=== PATIENT | male | born 1945 | race Caucasian/White ===

== ENCOUNTER 2016-06-02 11:38 | Emergency (ER) | payer MEDICARE, BC ==
[2016-06-02 12:06] VITALS: BP 103/53
[2016-06-02] MEDS ORDERED: HYDROcodone/ACETAMIN 5-325 MG* 1 TAB PO ONE (13:40)
[2016-06-02] MEDS ORDERED: Carisoprodol TAB* 350 MG PO ONE (13:40)
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
== END 2016-06-02 14:55 | disposition home or self-care (01) ==
LOC: ED 11:38
DX: S39.012A Strain of muscle, fascia and tendon of lower back, initial encounter (principal); X58.XXXA Exposure to other specified factors, initial encounter; Y93.9 Activity, unspecified; Y92.9 Unspecified place or not applicable; Y99.9 Unspecified external cause status
CPT/HCPCS: 99281; A9270-GY

== ENCOUNTER 2016-09-23 02:19 | Emergency (ER) | payer MEDICARE, BC ==
[2016-09-23] MEDS ORDERED: Diazepam TAB(*) 5 MG PO ONE (03:34)
[2016-09-23] MEDS ORDERED: Ketorolac INJ* 60 MG/2 ML VIAL IM ONE (03:34)
[2016-09-23 04:02] VITALS: BP 100/63
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
== END 2016-09-23 04:01 | disposition home or self-care (01) ==
LOC: ED 02:19
DX: S13.4XXA Sprain of ligaments of cervical spine, initial encounter (principal); X50.3XXA Overexertion from repetitive movements, initial encounter; Y93.H2 Activity, gardening and landscaping; Y92.9 Unspecified place or not applicable; Z88.5 Allergy status to narcotic agent
CPT/HCPCS: 96372; 99282; A9270-GY; J1885

== ENCOUNTER 2017-10-14 01:11 | Observation (INO) | payer MEDICARE, BC ==
[2017-10-14] MEDS ORDERED: NS 0.9% 1000 ML* 1,000 ML IV ONE (01:35)
[2017-10-14] MEDS ORDERED: Metoprolol Tartrate IV* 1 MG/ML 5 ML VIAL IV ONE ×3 (01:36→02:24)
[2017-10-14 01:56] LABS: ABS Basophils 0.1 10^3/ul (0-0.2); ABS Eosinophils 0.1 10^3/ul (0-0.6); ABS Lymphocytes 2.8 10^3/ul (1.0-4.8); ABS Monocytes 0.7 10^3/ul (0-0.8); ABS Neutrophils 3.9 10^3/ul (1.5-7.7); ABS Nucleated RBC 0 10^3/ul; Eosinophil % 1.7 % (0-6); Hematocrit 42 % (42-52); Hemoglobin 14.2 g/dl (14.0-18.0); Lymphocyte % 36.7 % (25-47); Mean Corpuscular HGB Conc 34 g/dl (31-36); Mean Corpuscular Hemoglobin 32 pg (27-31); Mean Corpuscular Volume 94 fL (80-94); Mean Platelet Volume 8.7 um3 (7.4-10.4); Nucleated Red Blood Cells % 0; Platelet Count 202 10^3/ul (150-450); Red Cell Distribution Width 14 % (10.5-15); White Blood Count 7.5 10^3/ul (3.5-10.8)
[2017-10-14 02:02] LABS: INR 0.96 (0.77-1.02)
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
[2017-10-14] MEDS ORDERED: Magnesium Sulfate 2 GM IV* 2 GM/50 ML BAG IVPB ONE (02:55)
[2017-10-14] MEDS ORDERED: Digoxin IV* 0.5 MG/2 ML AMP (0.25 MG/ML) IV SLOW PU ONE (03:08)
[2017-10-14] MEDS ORDERED: Ondansetron 40 MG VIAL* 2 MG/ML 20 ML VIAL IV PRN (03:10)
[2017-10-14] MEDS ORDERED: Al Hydrox/Mg Hydrox/Simet LIQ* 30 ML UDC PO PRN (03:10)
[2017-10-14] MEDS ORDERED: Cetirizine* 10 MG TAB PO PRN (03:14)
[2017-10-14] MEDS ORDERED: Metoprolol Tartrate IV* 1 MG/ML 5 ML VIAL IV PRN (03:15)
[2017-10-14] MEDS: NS 0.9% 1000 ML* 1,000 ML IV SCH ×2 (04:19→13:19)
--- NOTE | 2017-10-14 05:20 | HP ---
CC: Mini Price MD * HISTORY AND PHYSICAL: DATE OF ADMISSION: 10/14/17 TIME OF EVALUATION: 0300. PRIMARY CARE PHYSICIAN: Mini Price MD CHIEF COMPLAINT: Chest tightness and fatigue. HISTORY OF PRESENT ILLNESS: This is a 72-year-old male with a past medical history of coronary artery disease, status post stenting; AFib, on anticoagulation, status post ablation, who presents to the emergency room with having fatigue and chest tightness over the past few days. He denies there being chest pain; however, he was concerned about the fatigue and the chest tightness and they are planning on flying out to go to the [facility] early this morning, that he figured he should to go to the emergency room for further evaluation. He states he did have some associated shortness of breath and felt clammy. No nausea. He did have diarrhea few days that has since resolved. No fevers, no chills, no cold symptoms. No abdominal pain. No urinary symptoms. No leg swelling. No recent changes in his medications. He has had a slight weight gain about 5 pounds. He has increase in his exertional activity working around the house, doing yard work and composting. He has also increased his caffeine intake. No evidence of snoring at night. In the emergency room, the patient had labs and imaging. He was noted to be in rapid atrial fibrillation. He was given metoprolol 10 mg total, a liter of fluid, and referred to the hospitalist service for further evaluation. Otherwise, review of systems is negative. PAST MEDICAL HISTORY: 1. History of coronary artery disease, status post 3 stents, STEMI in February 2017, that showed in-stent restenosis of the LAD. 2. Atrial fibrillation, history of ablation, 2013. He is followed by Dr. Abarca. 3. Hypertension. 4. Hyperlipidemia. 5. Systolic heart failure with ejection fraction of 30% to 35%. 6. Seasonal allergies. MEDICATIONS: 1. Eliquis 5 mg p.o. b.i.d. 2. Valsartan 20 mg p.o. daily. 3. Lipitor 80 mg p.o. daily. 4. Nitroglycerin 0.4 mg sublingual q.5 minutes. 5. Metoprolol succinate 25 mg p.o. at bedtime. 6. Loratadine 10 mg daily as needed. 7. Brilinta 90 mg p.o. b.i.d. 8. Viagra 100 mg p.o. once as needed. ALLERGIES: TYLENOL, OXYCODONE, develops a rash. FAMILY HISTORY: His brother had an [place] in his 50s. He in his 70s. His paternal grandfather in his 50s from an [place]. SOCIAL HISTORY: The patient lives at home with his , Kimberly, who is his healthcare proxy. He is a nonsmoker. Rare alcohol use. He has Ph.D. Code status is full code. REVIEW OF SYSTEMS: A 14-point review of systems as mentioned in the HPI, otherwise negative. PHYSICAL EXAMINATION GENERAL: In no acute distress, resting comfortably with his at the bedside. VITAL SIGNS: T-max 98.7, pulse rate 94, respiratory rate 16, oxygen saturation 97% on room air, blood pressure 106/78. HEENT: Head: Normocephalic. Pupils are equal and reactive, anicteric. Oropharynx: Mucous membranes are moist. NECK: Supple. No lymphadenopathy. RESPIRATORY: Clear to auscultation. No wheezes, rhonchi, or rales. CARDIAC: Irregularly irregular rate and rhythm, tachycardia. Systolic murmur most prominent at the right sternal base. ABDOMEN: Soft, nontender, nondistended. EXTREMITIES: No clubbing, cyanosis, or edema. +2 DPs. NEUROLOGICAL: Alert and oriented x3. No gross focal neurologic deficits. DIAGNOSTIC STUDIES/LAB DATA: White count 7.5, hemoglobin 14.2, hematocrit 42, platelets 202. INR 0.96. Sodium 139, potassium 4.2, chloride 109, bicarb 24, BUN 16, creatinine 0.72, glucose 100, magnesium 1.7. Troponin 0.02. BNP is 405. TSH is 5.23. Radiographic data: EKG: Atrial fibrillation with a rate of 131. Chest x-ray: Wet read unremarkable. ASSESSMENT AND PLAN: This is a 72-year-old male with a past medical history of atrial fibrillation, on anticoagulation, and coronary artery disease, status post stenting with a ST-segment elevation myocardial infarction, presents to the emergency room with fatigue and chest tightness, found to be in rapid atrial fibrillation. Rapid atrial fibrillation. Assessment: It is unclear the etiology. He does have some chest tightness. His initial troponins were unremarkable. He does have a low magnesium. Plan: We will admit him to telemetry. We will give him a dose of digoxin now and magnesium now. We will place him on some gentle IV fluids. We will keep him n.p.o. and have Cardiology seen him in the morning for possible cardioversion and further evaluation. We will continue to trend his troponin, check a lipid panel. We will continue his Eliquis. Will continue IV Lopressor, hold PO metoprolol We will continue his Brilinta. He does not want to take an aspirin as this caused epistaxis in the past. We will hold his valsartan for now while trying to get his rate under better control. FEN: As mentioned, keep the patient n.p.o. IV fluids placed. DVT prophylaxis: The patient scores moderate risk. He is on Eliquis. Code status: Full code. PATIENT TIME: Greater than 45 minutes was spent doing the history and physical , more than half the time spent in direct patient contact. [id number]/[facility] #: [id number] HAMMAD
--- NOTE | 2017-10-14 08:06 | RAD ---
HISTORY: CP, chest pain COMPARISONS: March 04, 2017 VIEWS: 1: frontal portable view of the chest at 1:56 AM FINDINGS: LINES AND TUBES: None. CARDIOMEDIASTINAL SILHOUETTE: The cardiomediastinal silhouette is normal for portable technique. PLEURA: The costophrenic angles are sharp. No pleural abnormalities are noted. LUNG PARENCHYMA: The lungs are clear. ABDOMEN: The upper abdomen is clear. There is no subphrenic gas. BONES AND SOFT TISSUES: No bone or soft tissue abnormalities are noted. IMPRESSION: NO ACTIVE CARDIOPULMONARY DISEASE.
[2017-10-14] MEDS ORDERED: Ticagrelor* 90 MG TAB PO SCH (09:00)
[2017-10-14] MEDS ORDERED: Apixaban* 5 MG TAB PO SCH (09:00)
[2017-10-14] MEDS ORDERED: Atorvastatin* 80 MG TAB PO SCH ×2 (09:00→17:00)
[2017-10-14] MEDS ORDERED: fentaNYL* 50 MCG/ML 2 ML VIAL (100 MCG VIAL) ONE (09:44)
[2017-10-14] MEDS ORDERED: Naloxone* 0.4 MG/ML 1 ML VIAL ONE (09:44)
[2017-10-14] MEDS ORDERED: Flumazenil* 0.1 MG/ML 5 ML MDV ONE (09:44)
[2017-10-14] MEDS ORDERED: Midazolam* 1 MG/ML 10 ML VIAL (10 MG) ONE (09:44)
--- NOTE | 2017-10-14 10:50 | CONS ---
CC: Dr. Price; Dr. Abarca at [facility].* CARDIOLOGY CONSULTATION: DATE OF CONSULT: 10/14/17 INDICATION FOR CONSULTATION: Atrial fibrillation. HISTORY OF PRESENT ILLNESS: The patient is a 72-year-old gentleman with a history of coronary artery disease, history of atrial fibrillation, was admitted to the hospital with atrial fibrillation. The patient last admitted to the hospital was in 03/05/17, at that time he had acute ST-segment elevation in the anterior leads. His cardiac catheterization showed focal restenosis of his LAD stent and underwent a repeat stenting of his LAD. The patient states that over the last couple of days, he has been feeling more fatigued. He felt short of breath yesterday and ultimately, started having some mild pressure in his chest. The patient came to the emergency room. On arrival to the emergency room, he was in atrial fibrillation with rapid ventricular response. The patient was given IV metoprolol and diltiazem, his heart rate came under control. He was admitted to the hospital. The patient's troponin has been negative x2. His TSH was normal. The patient does have a history of atrial fibrillation. He did undergo pulmonary vein ablation in the past, it was 3 or 4 years ago. He cannot remember the exact date and has had no episodes of atrial fibrillation since then. PAST MEDICAL HISTORY: Significant for coronary artery disease. He had a stent placed to his LAD in February of 2016, again he had restenosis in February of 2017. History of atrial fibrillation, he is status post ablation, hyperlipidemia , hypertension. OUTPATIENT MEDICATIONS: 1. Eliquis 5 mg b.i.d. 2. Valsartan 20 mg a day. 3. Lipitor 80 mg a day. 4. Metoprolol succinate 25 mg q.h.s. 5. Loratadine 10 mg a day. 6. Brilinta 90 mg b.i.d. 7. Viagra as needed. ALLERGIES: TYLENOL and OXYCODONE. FAMILY HISTORY: His father has a history of myocardial infarction in his 50s, his paternal grandfather had a myocardial infarction in his 50s. SOCIAL HISTORY: He lives with his . He is a nonsmoker, rare alcohol intake. PHYSICAL EXAMINATION: Height is 5 feet 11 inches, weight is 200 pounds. Temperature 98.7, blood pressure 106/78, respiratory rate is 16, heart rate is 92, oxygen saturation 97% on room air. Sclerae anicteric. Oropharynx is pink without erythema. Carotids are 2+ without bruits. JVD is normal. Thyroid is normal. Cardiac Exam: S1, S2 without any murmurs, rubs or gallops. His heart rate is irregular. Lungs are clear to auscultation bilaterally. There is no dullness to percussion. Abdomen is soft, nontender, nondistended with normoactive bowel sounds. Extremities show no edema. He has 2+ pulses throughout. The patient is awake, alert, and oriented. He moves all 4 extremities equally. DIAGNOSTIC STUDIES/LAB DATA: EKG shows atrial fibrillation. Telemetry shows occasional 4-beat runs of idioventricular rhythm at 70 beats per minute. Laboratory studies are within normal limits both chemistries and CBC. IMPRESSION: This is a 72-year-old gentleman with a history of coronary artery disease, history of paroxysmal atrial fibrillation, is admitted to the hospital with atrial fibrillation. He is ruled out for a myocardial infarction. He has been on Eliquis and Brilinta for quite some time. It is my recommendation, the patient undergo a cardioversion, this is his first episode of atrial fibrillation after his ablation. My recommendation is just do a cardioversion and see how he proceeds from there. [id number]/[facility] #: [id number] [facility]PITALLyndsay
--- NOTE | 2017-10-14 10:58 | CARD ---
CC: Dr. Price; Dr. Abarca at [facility].* CARDIOVERSION NOTE: DATE OF STUDY: 10/14/17 - ROOM #443 PROCEDURE: Cardioversion. INDICATION: Atrial fibrillation. The patient is a 72-year-old gentleman with a history of paroxysmal atrial fibrillation, history of aFib ablation a number of years ago. This was his first episode of atrial fibrillation since his ablation. The patient is on chronic anticoagulation. Cardioversion was recommended. DESCRIPTION OF PROCEDURE: The patient was in a fasting state. Informed consent had been obtained prior to the procedure. All labs had been reviewed. The patient was given 4 mg of Versed and 50 mcg of fentanyl for conscious sedation. The patient was cardioverted with a 150 joules of synchronized biphasic energy. The patient converted to normal sinus rhythm. The patient tolerated the procedure well without complications. For now, I am not going to change any of his medications. This is his first episode of atrial fibrillation since his ablation. The patient will follow up with Dr. Abarca as an outpatient. [id number]/[facility] #: [id number] [facility]
[2017-10-14 15:31] VITALS: BP 97/50
== END 2017-10-14 17:57 | disposition home or self-care (01) ==
LOC: ED 01:11 → MEDTELE 03:10
PROVIDERS: ADMIT Pediatrics; ATTEND Hospitalist
DX: I48.91 Unspecified atrial fibrillation (principal); R06.02 Shortness of breath; Z79.01 Long term (current) use of anticoagulants; R07.9 Chest pain, unspecified; I25.10 Atherosclerotic heart disease of native coronary artery without angina pectoris; E78.5 Hyperlipidemia, unspecified; I50.20 Unspecified systolic (congestive) heart failure; J30.2 Other seasonal allergic rhinitis; Z95.9 Presence of cardiac and vascular implant and graft, unspecified; Z98.890 Other specified postprocedural states
CPT/HCPCS: 36415; 71045; 80053; 80061; 83605; 83735; 83880; 84443; 84484; 85025; 85610; 85730; 92960; 93005; 96365; 96375; 99156; 99284; A9270-GY; G0378; J1160; J2250; J2310; J3010; J3475; J3490

== ENCOUNTER 2017-12-18 09:50 | Day surgery (SDC) | payer MEDICARE, BC ==
[~2017-12-18 09:50] MED LIST: Buffered Lidocaine 0.9% SYRIN* 5 ML/SYR SYRINGE INTRADERM ONE
[2017-12-18] MEDS ORDERED: Midazolam* 1 MG/ML 2 ML VIAL (2 MG) ONE ×2 (10:49→11:44)
[2017-12-18 12:02] VITALS: BP 105/69
[2017-12-18] MEDS ORDERED: Povidone Iodine 5% OPTH* 30 ML BTL ONE (14:24)
[2017-12-18] MEDS ORDERED: Neomycin/Polymy/Dex OPTH.SUSP* MAXITROL 0.1% 5 ML ONE (14:24)
[2017-12-18] MEDS ORDERED: Ketorolac 0.5% OPHTH (NF) 0.5 % 5 ML BTL ONE (14:24)
[2017-12-18] MEDS ORDERED: acetaZOLAMIDE TAB* 250 MG ONE (14:24)
[2017-12-18] MEDS ORDERED: Lidocaine 1%* 5 ML VIAL ONE (14:24)
[2017-12-18] MEDS ORDERED: Lidocaine 2% EPI 1:200000 MPF*10-20 ML VIAL ONE (14:24)
[2017-12-18] MEDS ORDERED: Proparacaine 0.5% OPHTH.SOL* 15 ML BTL ONE (14:24)
[2017-12-18] MEDS ORDERED: Cyclopentolate 1% OPTH.SOL* 2 ML BTL ONE (14:24)
[2017-12-18] MEDS ORDERED: Phenylephrine 2.5% OPTH.SOL* 2 ML BTL ONE (14:24)
--- NOTE | 2017-12-18 21:49 | OP ---
OPERATIVE NOTE: DATE OF OPERATION: 12/18/17 - [facility] DATE OF : 43 SURGEON: Ronnell Harris M.D. PREOPERATIVE DIAGNOSIS: Cataract right eye. POSTOPERATIVE DIAGNOSIS: Cataract right eye. OPERATIVE PROCEDURE: Extracapsular cataract extraction with intraocular lens implant right eye. PROCEDURE: The patient was brought to the operating room after being given 1/2 % Alcaine with epinephrine drops in the preoperative area. The eye was prepped and draped in the usual sterile fashion. Sterile drape and eyelid speculum were placed. Again, topical 1/2% Alcaine with epinephrine was given. A paracentesis incision was made at the 9 o'clock position with the No. 75 blade. Clear cornea incision 2.2 x 2.2-mm was created at the 12 o'clock position starting at the anterior limbus using the 2.2-mm keratome. The anterior chamber was irrigated with 0.4 mL of 1% non-preservative intracameral lidocaine and filled with DisCoVisc. A capsulorrhexis was completed using the cystotome and the Utrata forceps. Hydrodissection was performed with balanced salt solution. The lens nucleus was removed with the Phacoemulsification handpiece without incident. Cortex was removed with the irrigation-aspiration handpiece. The capsular bag was re-inflated using DisCoVisc and an SN60WF 21.5 implant was inserted with the shooter. The irrigation-aspiration handpiece was used to remove all residual DisCoVisc. The eye was refilled with balanced salt solution and the wound checked and found to be watertight. Topical Maxitrol drops were given. [id number]/[facility] #: [id number] MTDD
== END 2017-12-18 12:06 | disposition home or self-care (01) ==
LOC: OREAST 09:50
PROVIDERS: ATTEND Specialist
DX: H25.811 Combined forms of age-related cataract, right eye (principal); H18.51 Endothelial corneal dystrophy; I25.10 Atherosclerotic heart disease of native coronary artery without angina pectoris; I48.91 Unspecified atrial fibrillation; Z79.01 Long term (current) use of anticoagulants; I25.2 Old myocardial infarction; J30.2 Other seasonal allergic rhinitis
CPT/HCPCS: A9270-GY; J2250; V2632

== ENCOUNTER 2017-12-25 11:04 | Day surgery (SDC) | payer MEDICARE, BC ==
[~2017-12-25 11:04] MED LIST changes: +Acetaminophen TAB* 325 MG PO PRN
[2017-12-25] MEDS ORDERED: Lidocaine 1%* 5 ML VIAL ONE (12:33)
[2017-12-25] MEDS ORDERED: Phenylephrine 2.5% OPTH.SOL* 2 ML BTL ONE (12:33)
[2017-12-25] MEDS ORDERED: Cyclopentolate 1% OPTH.SOL* 2 ML BTL ONE (12:33)
[2017-12-25] MEDS ORDERED: Povidone Iodine 5% OPTH* 30 ML BTL ONE (12:33)
[2017-12-25] MEDS ORDERED: Ketorolac 0.5% OPHTH (NF) 0.5 % 5 ML BTL ONE (12:33)
[2017-12-25] MEDS ORDERED: Neomycin/Polymy/Dex OPTH.SUSP* MAXITROL 0.1% 5 ML ONE (12:33)
[2017-12-25] MEDS ORDERED: Proparacaine 0.5% OPHTH.SOL* 15 ML BTL ONE (12:33)
[2017-12-25] MEDS ORDERED: Lidocaine 2% EPI 1:200000 MPF*10-20 ML VIAL ONE (12:33)
[2017-12-25] MEDS ORDERED: acetaZOLAMIDE TAB* 250 MG ONE (12:33)
[2017-12-25] MEDS ORDERED: Midazolam* 1 MG/ML 2 ML VIAL (2 MG) ONE ×2 (12:48→13:21)
[2017-12-25 13:41] VITALS: BP 98/53
--- NOTE | 2017-12-25 16:40 | OP ---
DATE OF OPERATION: 12/25/2017 - [facility] DATE OF : 1945. SURGEON: Ronnell Harris M.D. PREOPERATIVE DIAGNOSIS: Cataract left eye. POSTOPERATIVE DIAGNOSIS: Cataract left eye. OPERATIVE PROCEDURE: Extracapsular cataract extraction with intraocular lens implant left eye. DESCRIPTION OF PROCEDURE: The patient was brought to the operating room after being given 1/2% Alcaine with epinephrine drops in the preoperative area. The eye was prepped and draped in the usual sterile fashion. Sterile drape and eyelid speculum were placed. Again, topical 1/2% Alcaine with epinephrine was given. A paracentesis incision was made at the 3 o'clock position with the No.75 blade. Clear cornea incision 2.2 x 2.2-mm was created at the 6 o'clock position starting at the anterior limbus using the 2.2-mm keratome. The anterior chamber was irrigated with 0.4 mL of 1% non-preservative intracameral lidocaine and filled with DisCoVisc. A capsulorrhexis was completed using the cystotome and the Utrata forceps. Hydrodissection was performed with balanced salt solution. The lens nucleus was removed with the Phacoemulsification handpiece without incident. Cortex was removed with the irrigation-aspiration handpiece. The capsular bag was re-inflated using DisCoVisc and an [id number] 20.5 implant was inserted with the shooter. The irrigation-aspiration handpiece was used to remove all residual DisCoVisc. The eye was refilled with balanced salt solution and the wound checked and found to be watertight. Topical Maxitrol drops were given. [id number]/[facility] #: [id number] [facility]
== END 2017-12-25 13:47 | disposition home or self-care (01) ==
LOC: OREAST 11:04
PROVIDERS: ATTEND Specialist
DX: H25.812 Combined forms of age-related cataract, left eye (principal); H18.51 Endothelial corneal dystrophy; I48.91 Unspecified atrial fibrillation; Z79.01 Long term (current) use of anticoagulants; M19.90 Unspecified osteoarthritis, unspecified site; I25.2 Old myocardial infarction; I25.10 Atherosclerotic heart disease of native coronary artery without angina pectoris; Z95.5 Presence of coronary angioplasty implant and graft; J30.2 Other seasonal allergic rhinitis; Z87.442 Personal history of urinary calculi
CPT/HCPCS: A9270-GY; J2250; V2632

== ENCOUNTER 2019-04-05 15:24 | Day surgery (SDC) | payer MEDICARE, BC ==
[2019-04-05] MEDS ORDERED: Morphine 4 MG/ML VIAL (1 ml) 4 MG/ML VIAL IV ONE (15:34)
[2019-04-05] MEDS ORDERED: NS 0.9% 1000 ML** 1,000 ML IV ONE (15:34)
[2019-04-05] MEDS ORDERED: Ondansetron INJ* 2 MG/ML VIAL IV ONE (15:34)
[2019-04-05] MEDS ORDERED: Heparin for STEMI(*) 5,000 UNITS/ML 1 ML VIAL IV ONE ×2 (15:37→15:39)
[2019-04-05] MEDS ORDERED: nitroGLYCERIN DRIP* 0 MCG/0 ML BTL ONE (15:38)
[2019-04-05] MEDS ORDERED: Ticagrelor* 90 MG TAB PO ONE ×2 (15:38→15:39)
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
[2019-04-05] MEDS ORDERED: Heparin DRIP 25,000 UNITS(*) 25,000 UNITS/500 ML BAG IV SCH (15:45)
[2019-04-05] MEDS ORDERED: Heparin VIAL(*) 5000 UNITS/ML VIAL (FIVE THOUSAND) IV SCH ×2 (16:00)
[2019-04-05] MEDS ORDERED: Heparin(*) 1000 UNIT/ML 10 ML VIAL CATH LAB IV ONE (16:00)
[2019-04-05] MEDS ORDERED: nitroGLYCERIN DRIP* 25,000 MCG/250 ML BTL IV SCH (16:00)
[2019-04-05] MEDS ORDERED: VERAPAMIL 2.5 MG/ML 2 ML VIAL ** 5 mg/2 ml ONE (16:00)
[2019-04-05] MEDS ORDERED: Heparin 2 UNITS/ML IVPREMIX* 3,000 ML IV ONE (16:01)
[2019-04-05] MEDS ORDERED: nitroGLYCERIN DRIP* 25,000 MCG/250 ML BTL ONE (16:01)
[2019-04-05] MEDS ORDERED: Lidocaine 1% INJ* 10 MG/ML 30 ML SDV ONE (16:01)
[2019-04-05] MEDS ORDERED: Iohexol 350 (CONTRAST) 200 ML MDV IV ONE (16:02)
[2019-04-05 16:08] LABS: ABS Basophils 0.1 10^3/ul (0-0.2); ABS Eosinophils 0.1 10^3/ul (0-0.6); ABS Lymphocytes 2.6 10^3/ul (1.0-4.8); ABS Monocytes 0.8 10^3/ul (0-0.8); ABS Neutrophils 3.8 10^3/ul (1.5-7.7); Eosinophil % 1.5 %; Hematocrit 40 % (42-52); Hemoglobin 13.2 g/dL (14.0-18.0); Lymphocyte % 35.7 %; Mean Corpuscular HGB Conc 33 g/dL (31-36); Mean Corpuscular Hemoglobin 31 pg (27-31); Mean Corpuscular Volume 94 fL (80-94); Mean Platelet Volume 9.3 fL (7.4-10.4); Nucleated Red Blood Cells % 0.1; Platelet Count 180 10^3/uL (150-450); Red Blood Count 4.23 10^6 /uL (4.18-5.48); Red Cell Distribution Width 13 % (10-15); White Blood Count 7.4 10^3/uL (3.5-10.8)
[2019-04-05 16:13] VITALS: BP 106/59
[2019-04-05] MEDS ORDERED: fentaNYL* 50 MCG/ML 2 ML VIAL (100 MCG VIAL) ONE (16:20)
[2019-04-05] MEDS ORDERED: Midazolam* 1 MG/ML 5 ML VIAL (5 MG) ONE (16:20)
[2019-04-05 16:21] LABS: Albumin 3.7 g/dL (3.2-5.2); Albumin/Globulin Ratio 1.5 (1-3); BUN/Creatinine Ratio 26.4 (8-20); Calcium 9.1 mg/dL (8.6-10.3); EGFR African American 98.5 (>60); EGFR Non-African American 81.4 (>60); Globulin 2.4 g/dL (2-4); Potassium 3.7 mmol/L (3.5-5.0); Total Bilirubin 0.3 mg/dL (0.2-1.0); Total Protein 6.1 g/dL (6.4-8.9)
[2019-04-05] MEDS ORDERED: Bivalirudin(*) 250 MG VIAL ONE ×4 (16:32→18:43)
[2019-04-05] MEDS ORDERED: Heparin 2 UNITS/ML IVPREMIX* 2,000 ML IV ONE (17:51)
[2019-04-05] MEDS ORDERED: KCL 10 MEQ/50 ML IVPREMIX* 10 MEQ/50 ML BAG ONE (18:27)
[2019-04-05] MEDS ORDERED: Heparin 2 UNITS/ML IVPREMIX* 1,000 ML IV ONE (18:43)
[2019-04-05] MEDS ORDERED: Ondansetron INJ* 2 MG/ML VIAL ONE (19:15)
--- NOTE | 2019-04-05 23:00 | CONS ---
CC: Dr. Leo Abarca, [facility] * INTERVENTIONAL CARDIOLOGY CONSULT: DATE OF CONSULT: 04/05/19 INDICATION FOR THE CONSULT: The patient presents for the acute ST-segment elevation myocardial infarction, now to address acute intervention. HISTORY OF PRESENT ILLNESS: The patient is a 73-year-old gentleman with a prior known history of multiple stents placed to the proximal portion of left anterior descending artery dating back to 2013, as well as a repeat acute ST- segment elevation anterior wall myocardial infarction in 2016 after stopping his medications (he had been on them for a long enough time period) in preparation for orthopedic surgery. He now states that since Saturday, he has again been off his Eliquis and Brilinta in preparation for orthopedic surgery. Today, at approximately 12 noon , he started having development of severe chest discomfort with radiation to both arms and the back and slightly to the jaw. He felt like this was a similar episode what he had in the past and as such, he eventually called the paramedics. Paramedics arrived and tried to perform an EKG on the ride in, however, were unable to transmit one because they did not have a good enough quality tracing. On arrival in the emergency room, an EKG was taken and he was found to have an acute ST-segment elevation anterior wall myocardial infarction again. The patient received heparin therapy, Brilinta therapy in addition to getting some morphine and lidocaine by the emergency room physician. STEMI alert was called. On my presentation, he was still symptomatic with his chest and arm discomforts and back discomfort. I examined him and reviewed his past medical history and his review of systems pertinent to proceeding to the cardiovascular laboratory. The risks and benefits were then explained to both him and his . He understood them and wished to proceed. PAST MEDICAL HISTORY: Coronary artery disease with stenting done in 2013 and 2016; intermittent atrial fibrillation in the past with a history of ablation at [facility] with recurrent atrial fibrillation, now on anticoagulation; hyperlipidemia; history of kidney stones in the remote past; history of osteoarthritis; history of cataracts bilaterally. REVIEW OF SYSTEMS: Pertinent proceeding to the cardiovascular laboratory, the patient had no known history of significant renal insufficiency or disease. He has no history of hematemesis, hematochezia, or hematuria. He has no known contrast allergy and he has no history of TIAs or strokes. PHYSICAL EXAM: When I saw him in the emergency room, blood pressure 103/64 with a pulse of 62, respirations 13, O2 saturation 95%. Neck was supple. There was no increased JVP. Lungs were clear anteriorly and laterally with no active rales, rhonchi, or wheezes. Heart revealed no visible heaves, no palpable heaves, or thrills. Normal S1 and S2. There were no significant systolic or diastolic murmurs appreciated. Abdomen was soft, nontender. Extremities were without edema. Peripheral pulses were intact. Femoral pulses noted without bruits. Neuro: The patient is alert and oriented with normal mentation. Musculoskeletal: The patient moves all extremities appropriately. Psychological: The patient with appropriate affect for situation. DIAGNOSTIC STUDIES/LAB DATA: Pending at the time of the evaluation in the emergency room. EKG #1 dated 04/05/19, time 1531 showed normal sinus rhythm, heart rate 64. ST - segment elevation was seen in V2 through V5 and subtly in I, aVL, and V6 with reciprocal changes noted. Repeat EKG done at [address]- segment changes. OVERALL ASSESSMENT: Joe presents again in the throes of acute ST-segment elevation anterior wall myocardial infarction similar to the exact type of episode that occurred when he stopped his medications 2 years ago. He has already been loaded with Brilinta. He got heparin therapy and aspirin therapy, and at this point in time, the risks and benefits were explained to both him and his , he understood them and wished to proceed. Further management will be pending results of the cardiac catheterization. [id number] #: [id number] MTDD
--- NOTE | 2019-04-06 15:22 | CATH ---
CC: Dr. Leo Abarca, [facility] at [facility] on [facility] in [place] * CC: Dr. Agustin Harris, [facility], [facility] * CARDIAC CATHETERIZATION AND INTERVENTIONAL REPORT: DATE OF PROCEDURE: 04/05/19 - [facility] CATH INDICATION FOR THE PROCEDURE: The patient with a history of multiple stents to his proximal LAD, now presents with an acute ST segment elevation, anterior wall myocardial infarction after having stopped Brilinta and Eliquis 4 days ago in preparation for orthopedic surgery. PROCEDURES: 1. Coronary arteriography. 2. Balloon angioplasty of the proximal LAD. 3. Unsuccessful attempt to deliver stent to the proximal LAD. 4. Placement of an intraaortic balloon pump with subsequent transfer to [facility] for potential open heart surgery. CONSENT: The patient was interviewed and examined in the emergency room where the risks and benefits were explained to him and his , he understood them and wished to proceed. APPROACH UTILIZED: The right radial artery was assessed by ultrasound and found to be large enough for an approach and as such this was the approach utilized. LABORATORY RESULTS: No laboratory results were available precardiac catheterization due to his emergent situation. EQUIPMENT UTILIZED: 1. Right radial sheath was a 6-Niuean Glidesheath Slender. 2. Diagnostic catheter was a TIG4 curved 5-Niuean catheter for the right coronary artery. 3. The left coronary artery was cannulated utilizing the 6-Niuean LBU 3.5 curved guide catheter. 4. Interventional wires utilized included a regular length BMW wire, a regular length All Star wire. 5. The thrombectomy device utilized was a Pronto V4 extraction catheter. 6. Balloon angioplasty catheter utilized was a 2.5 x 15 mm Emerge balloon. 7. Other balloon catheters utilized included a 1.2 x 8 mm long Emerge balloon. 8. Stent attempted was a 2.7 x 16 mm long Synergy drug-eluting stent. 9. A snare utilized was a EN Snare 175 cm long by Enconcert. 10. The intraaortic balloon utilized was a 40 cm length intraaortic balloon pump. MEDICATIONS: Medications given during the procedure included the radial artery cocktail including 300 mcg of nitroglycerin, 3 mg verapamil. Of note, no heparin was given as 5000 units was given in the emergency room in addition to 180 mg of Ticagrelor. The patient also received local Xylocaine and Versed and oxygen therapy. Angiomax bolus and Angiomax drip was utilized once ACT was found to be subtherapeutic. A potassium drip of 10 mEq per hour was instituted. DESCRIPTION OF PROCEDURE: The patient was brought to the cardiovascular laboratory where a formal time-out was performed. He was prepped and draped in sterile fashion and under ultrasound guidance, the right radial artery was cannulated and a sheath was placed. Diagnostic coronary arteriography was carried out for the right coronary artery. The TIG4 catheter was exchanged for the guiding catheter and left coronary arteriography was formed. Decision was made to intervene into the totally occluded LAD at short distance after its origin. ACT was checked and found to be subtherapeutic, as such Angiomax bolus and Angiomax drip was started. A BMW wire was advanced across the totally occluded proximal segment, which included through multiple stents into the distal LAD area. Attempts were made to utilize the Pronto extraction catheter, but these were unsuccessful. As such, balloon angioplasty was then performed utilizing a 2.5 x 15 mm long Emerge balloon. Following this, a stent was brought up into the LAD and positioned, but on positioning it was noted that the first diagonal branch appeared to have EDMOND 1 flow and it is suggesting now developing compromise to this vessel. The decision was made to try to remove the stent in order to then place a guidewire into the diagonal branch. The stent was pulled back towards the guide and the guide catheter engaged into the left main and on trying to move the stent further, the stent came off of the balloon catheter. At this point in time, multiple attempts were made to remove the stent including placing a 1.5 mm balloon through the stent, distal to the stent, inflating it and pulling it back. This was unsuccessful. Following this, attempts were made utilizing 2 guidewires placed distally and twisting them and trying to remove it. After this was unsuccessful as well, attempts were then made to snare the stent and remove it. This was also unsuccessful. Of note, attempts were made to deliver a 2.5 x 15 mm balloon over a wire that was placed distally to the undeployed stent across the LAD to further dilate the LAD lesion , but the balloon angioplasty catheter could not get past this stented area. It was noted after aggressive attempts were made to remove the stent with deep seating of the guide catheter, there appeared to be staining in the wall of the distal left main into the LAD. Of note, there was no compromise of the blood flow in the left main into the LAD or circumflex. Given these findings, the decision was made to stop at this point in time and discuss transferring the patient for the potential for open heart surgery. An intraaortic balloon pump was placed given the presence of a significant LAD lesion was still present after PTCA but flow was restored. A discussion was then undertaken with the [facility] at [place], [place] as the patient initially wished to be transferred there since he is an established patient of the [facility]. I had spoken to the confectionery drops machine operator surgeon for Cardiothoracic Surgery and was initially led to believe that the transfer was going to take place. Within 15 to 30 minutes, however, I received a phone call from the confectionery drops machine operator surgeon stating that he had spoken with surgeon who would ultimately be performing the surgery, as well as the confectionery drops machine operator tray filler, and told me they felt within their best interest to refuse the transfer. At that point in time, I made an urgent phone call up to Dr. Agustin Harris at [facility] who immediately graciously accepted the patient in transfer to be admitted to the CTICU. Following this, we eventually removed the remaining guidewire and checked EDMOND flow through the LAD system . There appeared to be EDMOND 3 flow in both the proximal to mid LAD and the diagonal, with edmond 2 flow to the distal LAD apical area. Of note, at the time of transfer, the patient denied any active chest discomfort, no shortness of breath, no nausea, vomiting or diaphoresis. He was on an Angiomax drip. The right radial artery sheath was kept in place. I discussed several times with Dr. Harris the results of the catheterization films and offered them to be e-mailed to him, but he wanted me just to make sure they were sent to the system at [facility] and we transferred those images up twice to make sure they were there. The patient was transported with a chemical processing laborer nurse as well for help with management of the balloon pump and patient in general. RESULTS: CORONARY ARTERIOGRAPHY: A. Right coronary artery - a dominant vessel supplying multiple acute marginal branches and a PDA and posterior left ventricular branches, there were mild luminal irregularities, but no significant obstruction seen. There appeared to be collateral flow in the septal perforators going up to but not filling the LAD to any significant degree. B. Left coronary artery: 1. Left main - initially widely patent with no significant disease. Of note, after aggressive attempts at stent removal, there appeared to be staining in the wall of the distal left main into the LAD without significant compromise within the left main itself. 2. Left anterior descending artery - the left anterior descending artery is totally occluded a short distance after its ostium. On reopening the artery , the LAD was noted to have a critical lesion in the proximal to mid segment for which balloon angioplasty was performed. The diagonal branch also was noted to have a significant lesion at its ostium as well as at its proximal-to- mid segment. The rest of the LAD supplied out to the apical region supplying another small caliber mid diagonal branch. Of note, the flow at the apical region was EDMOND 2 flow at the very apex. 3. Circumflex artery - a nondominant vessel supplying a thin high first obtuse marginal branch, which had a 75% to 80% lesion seen. Of note, this vessel was too small for any type of intervention or bypass. Following this was a small caliber mid short obtuse marginal branch followed by a large bifurcating obtuse marginal branch, which had mild narrowing in its proximal portion of 35%. INTERVENTION TO LAD: - balloon angioplasty to the proximal portion of the LAD with caodaism of flow, albeit EDMOND 2 in the apical region. Unsuccessful deliver of the stent as mentioned above due to it sliding off of the balloon catheter and our inability to retrieve it despite multiple attempts utilizing different techniques as described above. A significant residual lesion, hazy in nature was present in the proximal LAD. OVERALL ASSESSMENT: Unsuccessful attempt to reestablish unobstructed flow through the LAD system with loss of the stent off the balloon catheter with inability to retrieve as described above. An intraaortic balloon was placed to stabilize the patient who had no active chest discomfort and was hemodynamically stable at the time of transfer to [facility]. Angiomax was continued so as to avoid thrombosis within the proximal LAD. Further management will be under the guidance of the [facility] physicians. Of note, I did have extensive discussion with Dr. Harris on multiple times and did recommend that an EKG be done on arrival to make sure the patient is stable as well. [id number]/[facility] #: [id number] [facility]Lyndsay
== END 2019-04-05 16:04 | disposition short-term general hospital (02) ==
LOC: ED 15:24 → CHICATH 16:04
PROVIDERS: ATTEND Internal Medicine Cardiovascular Disease
DX: I21.3 ST elevation (STEMI) myocardial infarction of unspecified site (principal); Z95.5 Presence of coronary angioplasty implant and graft; Z82.49 Family history of ischemic heart disease and other diseases of the circulatory system; I25.10 Atherosclerotic heart disease of native coronary artery without angina pectoris; I48.91 Unspecified atrial fibrillation; Z79.01 Long term (current) use of anticoagulants; E78.5 Hyperlipidemia, unspecified
CPT/HCPCS: 33967; 36415; 71045; 76937; 80053; 82550; 83605; 84484; 85025; 85347; 93005; 96374; 96375; 99156; 99157; 99284; A9270-GY; C1725; C1757; C1769; C1773; C1876; C1887; C9600-LD; C9606-LD; J0583; J1644; J2250; J2270; J2405; J3010; J3480